=== PATIENT | male | born 1960 | race Caucasian/White ===

== ENCOUNTER 2017-02-16 04:07 | Emergency (ER) | payer OTHER ==
[2017-02-16 05:05] LABS: BASOPHIL % 0.4 % (0-2); PLATELET COUNT 277 x10^3mcL (130-400); RED CELL DISTRIBUTION WIDTH 13.1 % (11.5-14.5)
[2017-02-16 05:12] LABS: CALCIUM 8.7 mg/dL (8.5-10.1); CARBON DIOXIDE 31.4 mmol/L (21-32); CHLORIDE SERUM 98 mmol/L (98-107); GFR1 > 60 mL/min; GLUCOSE SERUM 364 mg/dL (74-106); POTASSIUM SERUM 4.5 mmol/L (3.5-5.1); SODIUM SERUM 135 mmol/L (136-145)
[2017-02-16 05:19] LABS: ALKALINE PHOSPHATASE 91 U/L (46-116); ALT/SGPT 25 U/L (16-63); AST/SGOT 19 U/L (15-37); BILIRUBIN TOTAL 0.66 mg/dL (0.20-1.00); MAGNESIUM 2.5 mg/dL (1.8-2.4); TOTAL PROTEIN, SERUM 6.6 g/dL (6.4-8.2)
[2017-02-16 05:20] LABS: ALBUMIN 3.1 g/dL (3.4-5.0)
[2017-02-16 06:26] LABS: microscopic required? NO
[2017-02-16 06:27] VITALS: BP 153/98
[2017-02-16 07:19] LABS: UA SPECIFIC GRAVITY 1.015 (1.005-1.035); urine erythrocyte NEGATIVE (NEGATIVE)
== END 2017-02-16 06:16 | disposition home or self-care (01) ==
LOC: ED 04:07
PROVIDERS: Emergency Medicine
DX: M79.1 Myalgia (principal); E11.40 Type 2 diabetes mellitus with diabetic neuropathy, unspecified; R74.8 Abnormal levels of other serum enzymes; R03.0 Elevated blood-pressure reading, without diagnosis of hypertension; E78.5 Hyperlipidemia, unspecified
CPT/HCPCS: 82962; J1885; J2270; J2405; J7030